=== PATIENT | male | born 1945 | race Caucasian/White ===

== ENCOUNTER → 2018-02-10 | Day surgery (SDC) | payer MEDICARE, OTHER ==
[~2018-02-10] MED LIST: ASPIR-LOW81 MG; FENTANYL CITRATE/PF 100MCG/2 ML INJ ONE; LEVOTHYROXINE; MIDAZOLAM HCL 2 MG/2 ML VIAL ONE; OLMESARTAN; OMEPRAZOLE40 MG; OR PHACO EYE KIT ONE; PREOP PHACO EYE KIT ONE; TOBRAMYCIN/DEXAMETHASONE(OPTH) 3.5 GM TUBE ONE; [UNRECOGNIZED DRUG - OTHER]
[2018-02-10 12:05] VITALS: BP 114/68
== END | disposition home or self-care (01) ==
LOC: OR 08:45
PROVIDERS: ATTEND Ophthalmology
DX: H25.11 Age-related nuclear cataract, right eye (principal); I10 Essential (primary) hypertension; K21.9 Gastro-esophageal reflux disease without esophagitis; E03.9 Hypothyroidism, unspecified; Z88.6 Allergy status to analgesic agent; Z88.0 Allergy status to penicillin; Z88.2 Allergy status to sulfonamides; Z79.82 Long term (current) use of aspirin; Z96.652 Presence of left artificial knee joint
CPT/HCPCS: 66984; J2250; V2632

== ENCOUNTER 2020-11-08 12:35 | Emergency (ER) | payer MEDICARE, OTHER ==
[~2020-11-08] VITALS: Ht 177.8 cm; Wt 113.4 kg
[~2020-11-08 12:35] MED LIST changes: -FENTANYL CITRATE/PF 100MCG/2 ML INJ ONE; -MIDAZOLAM HCL 2 MG/2 ML VIAL ONE; -OR PHACO EYE KIT ONE; -PREOP PHACO EYE KIT ONE; -TOBRAMYCIN/DEXAMETHASONE(OPTH) 3.5 GM TUBE ONE
[2020-11-08] MEDS ORDERED: CASIRIVIMAB/IMDEVIMAB 10 ML VIAL IV ONE (13:15)
[2020-11-08] MEDS ORDERED: CASIRIVIMAB/IMDEVIMAB 600 ML in SODIUM CHLORIDE 0.9% 100 ML IV ONE (14:00)
[2020-11-08 14:28] VITALS: BP 126/73
== END 2020-11-08 14:30 | disposition home or self-care (01) ==
LOC: ER 13:11
DX: R50.9 Fever, unspecified (principal); U07.1 COVID-19; E03.9 Hypothyroidism, unspecified
CPT/HCPCS: 99283

== ENCOUNTER 2020-11-28 14:59 | Emergency (ER) | payer MEDICARE, OTHER ==
[~2020-11-28] VITALS: Ht 177.8 cm; Wt 113.4 kg
== END 2020-11-28 15:25 | disposition home or self-care (01) ==
LOC: ER 15:11
DX: U07.1 COVID-19 (principal); E03.9 Hypothyroidism, unspecified
CPT/HCPCS: 99282